=== PATIENT | female | born 1955 | race Caucasian/White ===

== ENCOUNTER 2021-06-15 17:16 | Emergency (ER) | payer OTHER, MEDICARE, BC ==
[~2021-06-15] VITALS: Ht 170.2 cm; Wt 83.4 kg
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
[2021-06-15] MEDS ORDERED: NORCO 5/325MG TABLET (BULK FOR ED) PO ONE (20:55)
[2021-06-15] MEDS ORDERED: HYDR-3713 PO (21:03)
[2021-06-15 22:06] VITALS: BP 173/85
--- NOTE | 2021-06-16 16:44 | ED PDOC ---
Post-Departure Follow-Up pt sent certified letter to obtain pcp name. once obtained please fax ct chest/ c spine and ls spine for fu . [facility] also faxed those cts forfu Ralf Galeano MD Jun 16, 2021 16:44
== END 2021-06-15 22:11 | disposition home or self-care (01) ==
LOC: M ED 17:16
DX: S20.02XA Contusion of left breast, initial encounter (principal); S22.31XA Fracture of one rib, right side, initial encounter for closed fracture; S32.059A Unspecified fracture of fifth lumbar vertebra, initial encounter for closed fracture; S22.019A Unspecified fracture of first thoracic vertebra, initial encounter for closed fracture; S12.491A Other nondisplaced fracture of fifth cervical vertebra, initial encounter for closed fracture; V43.62XA Car passenger injured in collision with other type car in traffic accident, initial encounter; Y92.9 Unspecified place or not applicable; Y93.9 Activity, unspecified; Y99.9 Unspecified external cause status; I77.819 Aortic ectasia, unspecified site; I34.0 Nonrheumatic mitral (valve) insufficiency; K44.9 Diaphragmatic hernia without obstruction or gangrene; G25.0 Essential tremor; G47.33 Obstructive sleep apnea (adult) (pediatric); Z88.0 Allergy status to penicillin; Z88.1 Allergy status to other antibiotic agents; Z88.8 Allergy status to other drugs, medicaments and biological substances; Z91.013 Allergy to seafood

== ENCOUNTER → 2021-06-20 | Outpatient (CLI) | payer OTHER, MEDICARE, BC ==
[~2021-06-20] MED LIST: HYDR-3713 PO
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
== END ==
LOC: M SOG 14:32
PROVIDERS: ATTEND Orthopaedic Surgery
DX: S12.400A Unspecified displaced fracture of fifth cervical vertebra, initial encounter for closed fracture (principal); M25.511 Pain in right shoulder; X58.XXXA Exposure to other specified factors, initial encounter; Y92.9 Unspecified place or not applicable; Y93.9 Activity, unspecified; Y99.9 Unspecified external cause status

== ENCOUNTER → 2021-06-23 | Outpatient (CLI) | payer OTHER, MEDICARE, BC ==
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
== END ==
LOC: M PLARAD 10:34
PROVIDERS: ATTEND Orthopaedic Surgery
DX: S12.400A Unspecified displaced fracture of fifth cervical vertebra, initial encounter for closed fracture (principal); S13.4XXA Sprain of ligaments of cervical spine, initial encounter; X58.XXXA Exposure to other specified factors, initial encounter; Y92.9 Unspecified place or not applicable; Y99.9 Unspecified external cause status; Y93.9 Activity, unspecified